=== PATIENT | male | born 1990 | race Caucasian/White ===

== ENCOUNTER 2024-12-18 03:56 | Emergency (ER) | payer SELFPAY ==
[~2024-12-18] VITALS: Ht 172.7 cm; Wt 66.8 kg
[2024-12-18 04:06] VITALS: O2SAT 98
[2024-12-18 04:10] VITALS: TEMP 36.4
[2024-12-18] MEDS: MAGNESIUM/ALUMINUM HYDROXIDE/SIMETHICONE 30ML UDC PO ONE (04:34)
[2024-12-18] MEDS: DICYCLOMINE HCL 10MG CAPSULE PO ONE (04:52)
[2024-12-18] MEDS ORDERED: MAG-55 MT (05:08)
[2024-12-18 05:13] VITALS: BP 116/69; PULSE 58; RESP 18; O2SAT 100
== END 2024-12-18 05:14 | disposition home or self-care (01) ==
LOC: ER 03:56
DX: R14.1 Gas pain (principal)
CPT/HCPCS: 99283